=== PATIENT | female | born 1955 | race Caucasian/White ===

== ENCOUNTER → 2017-10-03 | Outpatient (CLI) | payer OTHER ==
[~2017-10-03] MED LIST: TRAMADOL 50 MG50 MG PO
== END ==
LOC: M.RAD 10:20
DX: M25.551 Pain in right hip (principal); R07.9 Chest pain, unspecified; R10.11 Right upper quadrant pain; R10.31 Right lower quadrant pain

== ENCOUNTER → 2017-12-27 | Outpatient (CLI) | payer OTHER ==
[2017-12-27 07:57] LABS: CREATININE 0.8 mg/dL (0.6-1.3)
== END ==
LOC: M.LAB 07:32 → M.CT 09:00
DX: K44.9 Diaphragmatic hernia without obstruction or gangrene (principal); K20.9 Esophagitis, unspecified; R10.9 Unspecified abdominal pain

== ENCOUNTER → 2019-03-18 | Outpatient (CLI) | payer OTHER | LOC: M.RAD 15:59 | DX: M41.86 Other forms of scoliosis, lumbar region (principal) ==

== ENCOUNTER → 2020-07-10 | Outpatient (CLI) | payer MEDICARE | LOC: M.RAD 11:29 | PROVIDERS: ATTEND Internal Medicine | DX: M79.644 Pain in right finger(s) (principal); Z00.00 Encounter for general adult medical examination without abnormal findings; K21.9 Gastro-esophageal reflux disease without esophagitis; E78.5 Hyperlipidemia, unspecified; R35.0 Frequency of micturition; M79.89 Other specified soft tissue disorders ==

== ENCOUNTER → 2020-07-30 | Outpatient (CLI) | payer MEDICARE | LOC: M.RAD 13:30 | PROVIDERS: ATTEND Internal Medicine | DX: M81.0 Age-related osteoporosis without current pathological fracture (principal); N95.1 Menopausal and female climacteric states ==